=== PATIENT | female | born 1970 | race Caucasian/White ===

== ENCOUNTER 2019-08-30 00:25 | Outpatient (CLI) | payer BC, SELFPAY ==
[2019-08-30 19:01] LABS: SARS-CoV-2 RNA PCR Negative
== END 2019-08-30 00:26 | disposition home or self-care (01) ==
PROVIDERS: Visit Provider Urology
DX: Z01.818 Encounter for other preprocedural examination (principal); Z11.59 Encounter for screening for other viral diseases
CPT/HCPCS: 87635; C9803; U0003

== ENCOUNTER 2019-09-01 03:18 | Day surgery (SDC) | payer BC, SELFPAY ==
[2019-08-21 10:50] VITALS: BMI 33.9
[2019-09-01] VITALS (7 sets, daily range): BP systolic 111–131; BP diastolic 63–74; PULSE 46–78; RESP 13–22; TEMP 36.6; O2SAT 96–100
[2019-09-01] MEDS: LACTATED RINGERS 1,000 ML 30 ML IV CONT (06:30)
--- NOTE | 2019-09-01 07:06 | WPDANESEPPF ---
Anes - Initial Pre Proc Eval Procedure: Operation Date: 09/01/19 07:30 Proposed Procedures p Urethral Sling - Kp Nicolas MD Date/Time: 09/01/19 07:06 Surgeon: Kp Nicolas MD Pre Op Diagnosis: Stress Incontinence Patient Data Age: 49 Gender: F Height: 5 ft 11 in Weight: 108.3 kg Last Vital Signs Temp 97.8 F 09/01/19 06:44 Pulse 60 09/01/19 06:44 Resp 16 09/01/19 06:44 BP 119/74 09/01/19 06:44 Pulse Ox 99 09/01/19 06:44 Allergies Allergy/AdvReac Type Severity Reaction Status Date / Time ampicillin Allergy throat Verified 09/01/19 06:29 swelling Home Medications Medication Instructions Recorded Confirmed Type ascorbic acid (vitamin C) [Vitamin 1 g PO DAILY 08/21/19 09/01/19 History C] cetirizine 10 mg PO DAILY 08/21/19 09/01/19 History cyanocobalamin (vitamin B-12) 250 mcg PO DAILY 08/21/19 09/01/19 History [Vitamin B-12] vitamin E 400 unit PO DAILY 08/21/19 09/01/19 History Patient hx anesthesia problems: none Family hx anesthesia problems: none PMFSH Past Medical History Medical History (Updated 09/01/19 @ 07:05 by Karri Espinosa MD) Healthy adult Social History Social History Smoking packs per day: 2 Smoking cigarettes per day: 40.0 Years smoked: 9 Smoking pack-years: 18.00 Smoking status: Former smoker Tobacco type: cigarettes Additional smoking assessment comments: QUIT 2003 Alcohol intake: current Substance use: current Substance use type: marijuana Last use: 08/20/19 Spiritual care concerns: No Anes - Eval Final PreProcedure Day of Procedure 09/01/19 07:06 Patient weight: overweight Heart: regular rate and rhythm Lungs: clear to auscultation Airway: Mallampati scale class II Neurological: alert and oriented Last oral intake: >/= 8 hours ASA classification: II Emergent: no Anesthetic plan: proceed Anesthesia type and monitoring: general LMA and standard monitoring Informed Consent: The patient's anesthetic plan and its attendant risks and benefits were discussed with the patient/family/POA. Questions were solicited and answers provided to the satisfaction of the patient/family/POA.
--- NOTE | 2019-09-01 07:19 | WPDHPUPDATE1 ---
History and Physical Update Update Date/Time: 09/01/19 07:19 History and Physical has been reviewed, including an updated exam of the patient. There are NO changes in the patient's condition. Risks, benefits, and alternatives have been discussed and questions answered. Patient agrees to proceed with procedure.
[2019-09-01] MEDS: levoFLOXacin 500 MG/D5W 100 ML 500 MG/100 ML BAG 100 MG IVPB (07:26)
[2019-09-01] MEDS: KETOROLAC 30 MG/ML VIAL (*BKC) IM (07:43)
--- NOTE | 2019-09-01 07:56 | PM.PROC ---
Procedure Note - Detailed Date of procedure: 09/01/19 Pre-op diagnosis: Stress Incontinence Stress urinary incontinence Post-op diagnosis: same Procedure performed: Transobturator Mid-urethral sling Cystoscopy Description of procedure: This is a patient with confirmed stress urinary incontinence. She desires correction. She understands the risks of bleeding, infection, damage to the urinary tract, lack of cure of stress incontinence, recurrence of stress incontinence, postoperative voiding dysfunction including incontinence and retention, need for ancillary procedures to loosen remove the sling, postoperative voiding dysfunction including retention and overactive bladder, hip and leg pain, dyspareunia, mesh related complications including exposure and extrusion. She agrees to proceed. She understands it will not help overactive bladder symptoms if present. She was correctly identified and informed consent obtained. She is brought to the operating room. She was given appropriate anesthesia. She was placed in the dorsal lithotomy position. All pressure points were padded. She was given appropriate perioperative antibiotics and a time-out performed. A Cox catheter is placed. I marked out the thigh incisions anesthetize the skin and made those incisions. I anesthetized the anterior vaginal wall over the mid urethra. I made a 1 cm incision. I dissected out laterally taking great care not to injure the urethra or the vaginal wall. Passed the helical trocars 1st on the left and then on the right from the thigh incision towards the vaginal incision. Sling was connected to the trocars and brought out through the thigh incision. I tensioned the sling appropriately. I cut and removed the plastic sheaths. I closed the incision with 2 0 Vicryl. I then performed cystoscopy. There was no surgical artifact or abnormalities inside the bladder. The urethra was normal without surgical artifact. I cut the excess sling material. I closed the incisions with glue. She was awakened and transferred to the PACU in stable condition. Implants: Mid urethral sling Surgeon: Kp Nicolas MD Drains: No Packing: No Pathology: none sent Complications: No immediate complications Condition: stable Disposition: PACU
--- NOTE | 2019-09-01 11:57 | SUR.PHASEII ---
PT HAD NO PROBLEM URINATING BEFORE DC.
== END 2019-09-01 09:35 | disposition home or self-care (01) ==
PROVIDERS: Visit Provider Urology
PROC: (CPT 57288; principal; 2019-09-01 07:30)
DX: N39.3 Stress incontinence (female) (male) (principal); Z87.891 Personal history of nicotine dependence; F12.90 Cannabis use, unspecified, uncomplicated
CPT/HCPCS: 57288; A9270; C1771; J1100; J1885; J1956; J2250; J2405; J2704; J3010; J7030; J7120

== ENCOUNTER → 2020-05-29 13:44 | Outpatient (CLI) | payer BC, SELFPAY ==
--- NOTE | ~2020-05-29 | MM_ITS ---
EXAMINATION: MM screening ryan BI w kelly HISTORY: Screening TECHNIQUE: Craniocaudal and mediolateral oblique 3-D tomosynthesis images were obtained and synthetic 2-D images were generated. CAD analysis was submitted and interpreted. COMPARISON: No prior mammogram is available for comparison at this institution. BREAST PARENCHYMAL COMPOSITION: There are scattered areas of fibroglandular density. FINDINGS: There is no evidence of suspicious mass, calcification, or architectural distortion to sugg est malignancy in either breast. There has been no suspicious interval change. IMPRESSION: 1. No mammographic evidence of malignancy. 2. Recommend routine screening mammography in one year. BI-RADS Category 1: Negative Reviewed, dictated and finalized at location A.
== END ==
PROVIDERS: Visit Provider Obstetrics & Gynecology Gynecology
DX: Z12.31 Encounter for screening mammogram for malignant neoplasm of breast (principal)
CPT/HCPCS: 77063; 77067

== ENCOUNTER → 2022-03-09 10:50 | Outpatient (CLI) | payer OTHER, SELFPAY ==
--- NOTE | ~2022-03-09 | US_ITS ---
Pelvic ultrasound. Clinical History: Abnormal uterine and vaginal bleeding Technique: Realtime transabdominal and transvaginal scanning of the pelvis was performed. Color flow Doppler and Doppler spectral analysis were performed. Findings: The uterus is anteverted. The endometrial stripe has a thickness of 6 mm. Probable right-s ided fibroid measures 2.5 cm in maximum diameter, partially exophytic. The right ovary measures 5.6 x 4.9 x 5.0 cm.. It is largely occupied by a complex cyst with heterogen eous low-level internal echoes. Vascular flow present at the peripheral aspect of the right ovary. The left ovary measures 1.6 x 3.0 x 1.7 cm. No significant left ovarian or adnexal mass is seen. There is no evidence of free fluid in the cul de sac. Impression: Right ovarian hemorrhagic cyst measuring approximately 5.5 cm in diameter. Probable 2.5 cm uterine fibroid. Reviewed, dictated and finalized at [facility]. [employer] Impression: Right ovarian hemorrhagic cyst measuring approximately 5.5 cm in diameter. Probable 2.5 cm uterine fibroid.
== END ==
PROVIDERS: Visit Provider Obstetrics & Gynecology Gynecology
DX: N83.201 Unspecified ovarian cyst, right side (principal); N93.8 Other specified abnormal uterine and vaginal bleeding
CPT/HCPCS: 76830

== ENCOUNTER → 2022-03-26 16:49 | Outpatient (CLI) | payer OTHER, SELFPAY ==
--- NOTE | ~2022-03-26 | MM_ITS ---
EXAMINATION: MM screening ryan BI w kelly HISTORY: Screening mammogram TECHNIQUE: Craniocaudal and mediolateral oblique 3-D tomosynthesis images were obtained and synthetic 2-D images were generated. CAD analysis was submitted and interpreted. COMPARISON: 05/29/2020 bilateral screening mammogram BREAST PARENCHYMAL COMPOSITION: The breasts are heterogeneously dense, which may obscure small masses . FINDINGS: There is no evidence of suspicious mass, calcification, or architectural distortion to sugg est malignancy in either breast. There has been no suspicious interval change. IMPRESSION: 1. No mammographic evidence of malignancy. 2. Recommend routine screening mammography in one year. BI-RADS Category 1: Negative Reviewed, dictated and finalized at location A. IBLE PACKER
== END ==
PROVIDERS: PCP Obstetrics & Gynecology Gynecology; Visit Provider Obstetrics & Gynecology Gynecology
DX: Z12.31 Encounter for screening mammogram for malignant neoplasm of breast (principal)
CPT/HCPCS: 77063; 77067

== ENCOUNTER → 2022-05-12 08:18 | Outpatient (CLI) | payer OTHER, SELFPAY ==
--- NOTE | ~2022-05-12 | US_ITS ---
Pelvic ultrasound. Clinical History: Ovarian cyst Technique: Realtime transabdominal and transvaginal scanning of the pelvis was performed. Color flow Doppler and Doppler spectral analysis were performed. Findings: The uterus is anteverted. The endometrial stripe has a thickness of 10 mm. Anterior wall f ibroid measures 2.9 cm in diameter. The right ovary measures 3.3 x 1.5 x 2.6 cm. No significant right ovarian or adnexal mass is seen. The left ovary measures 2.6 x 2.1 x 2.8 cm. No significant left ovarian or adnexal mass is seen. There is no evidence of free fluid in the cul de sac. Impression: 2.9 cm uterine fibroid, as above. Reviewed, dictated and finalized at location . Impression: 2.9 cm uterine fibroid, as above.
== END ==
PROVIDERS: PCP Obstetrics & Gynecology Gynecology; Visit Provider Obstetrics & Gynecology Gynecology
DX: N83.201 Unspecified ovarian cyst, right side (principal); D25.9 Leiomyoma of uterus, unspecified
CPT/HCPCS: 76830

== ENCOUNTER 2023-10-30 10:14 | Outpatient (CLI) | payer OTHER, SELFPAY ==
--- NOTE | ~2023-10-30 | US_ITS ---
EXAMINATION: US pelvic complete DATE: 10/30/2023 10:37 INDICATION: Postmenopausal bleeding TECHNIQUE: Multiple transabdominal sonographic images of the pelvis were obtained. COMPARISON: None. FINDINGS: The uterus measures 8.5 x 5.5 x 6.8 cm. The endometrial complex measures 4 mm in thickness. Again se en is a 3.4 cm hypoechoic anterior uterine fibroid. The right ovary is not visualized The left ovary measures 6.3 x 6.0 x 5.2 cm containing a 5.1 x 4.8 x 4.7 cm anechoic left ovarian cyst. There is no f ree fluid in the pelvis. IMPRESSION: 1. 3.4 cm uterine fibroid with normal endometrial complex thickness of 4 mm. 2. 5.1 cm left ovarian cyst. Reviewed, dictated and finalized at location A.
== END 2023-10-30 10:15 | disposition home or self-care (01) ==
PROVIDERS: PCP Obstetrics & Gynecology Gynecology; Visit Provider Nurse Practitioner Women's Health
DX: D25.9 Leiomyoma of uterus, unspecified (principal); N83.202 Unspecified ovarian cyst, left side; N95.0 Postmenopausal bleeding
CPT/HCPCS: 76856

== ENCOUNTER 2023-12-01 12:40 | Outpatient (CLI) | payer OTHER, SELFPAY ==
--- NOTE | ~2023-12-01 | US_ITS ---
US pelvic complete Ordering provider: Jennifer Ponce MD History: . screening mammogram, ovarian cyst . Comparison: Technique: Transabdominal and endovaginal ultrasound of the pelvis (Doppler ultrasound interrogation techniques used as needed for this exam.) FINDINGS: CERVIX: Normal. UTERUS: Measures 10.8x 6.7x 6.8 cm in length which is within normal limits and is anteverted. Hypoec hoic area is seen which measures 3.6 x 3.4 x 4.8 cm which is most likely fibroid. ENDOMETRIUM: Normal in thickness measuring mm. (Note: the premenopausal endometrium may measure up to 16 mm when in the secretory phase.) No endometrial masses, cysts or fluid. CUL DE SAC: No free fluid. RIGHT OVARY: Normal in size measuring 5.1x 2.4x 5.3 cm Normal echotexture. Doppler vascular flow pres ent. Simple cyst is seen measuring 2.7 x 2.7 x 2.9 cm. LEFT OVARY: Normal in size measuring 2.8x 2.7x 3.2 cm. Normal echotexture. Doppler vascular flow pres ent. ADNEXA: Normal. No mass. IMPRESSION: Fibroid uterus. Simple Cyst In the right ovary. Otherwise, normal pelvic ultrasound. Reviewed, dictated and finalized at location A. IMPRESSION: Fibroid uterus. Simple Cyst In the right ovary. Otherwise, normal pelvic ultras ound.
--- NOTE | ~2023-12-01 | MM_ITS ---
EXAMINATION: MM screening ryan BI w kelly HISTORY: Screening TECHNIQUE: Craniocaudal and mediolateral oblique 3-D tomosynthesis images were obtained and synthetic 2-D images were generated. CAD analysis was submitted and interpreted. COMPARISON: Comparison to multiple prior studies sequentially, with oldest reviewed study dated 05/29. BREAST PARENCHYMAL COMPOSITION: Dense: The breasts are heterogeneously dense, which may obscure small masses FINDINGS: There is no evidence of suspicious mass, calcification, or architectural distortion to sugg est malignancy in either breast. There has been no suspicious interval change. IMPRESSION: 1. No mammographic evidence of malignancy. 2. Recommend routine screening mammography in one year. BI-RADS Category 1: Negative Reviewed, dictated and finalized at location B.
== END 2023-12-01 12:41 | disposition home or self-care (01) ==
LOC: MICIMG 12:42
PROVIDERS: PCP Obstetrics & Gynecology Gynecology; Visit Provider Obstetrics & Gynecology Gynecology
DX: Z12.31 Encounter for screening mammogram for malignant neoplasm of breast (principal); D25.9 Leiomyoma of uterus, unspecified; N83.201 Unspecified ovarian cyst, right side
CPT/HCPCS: 76856; 77063; 77067